=== PATIENT | male | born 1985 | race Caucasian/White ===

== ENCOUNTER 2016-04-11 09:20 | Inpatient (IN) | payer MEDICARE, MEDICAID ==
[~2016-04-11] VITALS: Ht 175.3 cm; Wt 111.1 kg
[2016-04-11] MEDS ORDERED: Ibuprofen 400 MG TAB PO PRN (13:30)
[2016-04-11] MEDS ORDERED: HALOPERIDOL 5 MG TAB PO PRN (13:30)
[2016-04-11] MEDS ORDERED: LORAZEPAM 2 MG TAB PO PRN (13:30)
[2016-04-11] MEDS ORDERED: ALU/MAG/SIM 30 ML UDC PO PRN (13:30)
[2016-04-11] MEDS ORDERED: LORAZEPAM 2 MG/ML VIAL IM PRN (13:30)
[2016-04-11] MEDS ORDERED: DIPHENHYDRAMINE 50 MG/ML VIAL IM PRN (13:30)
[2016-04-11] MEDS ORDERED: **NOTE TO NURSE XX SCH (13:30)
[2016-04-11] MEDS ORDERED: HALOPERIDOL 5 MG/ML VIAL IM PRN (13:30)
[2016-04-11] MEDS ORDERED: TRAZODONE 50 MG TAB PO PRN (13:30)
[2016-04-11] MEDS ORDERED: DIPHENHYDRAMINE 50 MG CAP PO PRN (13:30)
[2016-04-11] MEDS ORDERED: *PINK BRACELET XX ONE (14:25)
[2016-04-11 14:26] VITALS: BP_SYST 119; TEMP 98.5
[2016-04-11 14:44] VITALS: Ht 175.3 cm; Wt 111.1 kg
[2016-04-11] MEDS ORDERED: TRAMADOL 50 MG TAB PO PRN (15:00)
[2016-04-11] MEDS: DULoxetine 30 MG CAP PO SCH (17:00)
[2016-04-11] MEDS: NICOTINE 21 MG/24 HR TRANSDERM SCH (17:30)
[2016-04-11 19:00] VITALS: BP_SYST 105; RESP 18; TEMP 97.8
[2016-04-11] MEDS: *HOME MEDS KEPT IN PHARMACY XX SCH (20:00)
[2016-04-11] MEDS: BENZTROPINE 0.5 MG TAB PO SCH (20:48)
[2016-04-11] MEDS: PREGABALIN 75 MG CAP PO SCH (20:48)
[2016-04-12 08:46] VITALS: BP_SYST 125; RESP 18; TEMP 98.7
[2016-04-12] MEDS ORDERED: TRAZODONE 50 MG TAB PO PRN (09:15)
[2016-04-12] MEDS: PREGABALIN 75 MG CAP PO SCH ×2 (09:36→21:20)
[2016-04-12] MEDS: DULoxetine 30 MG CAP PO SCH (09:36)
[2016-04-12] MEDS: BENZTROPINE 0.5 MG TAB PO SCH (09:36)
[2016-04-12] MEDS: NICOTINE 21 MG/24 HR TRANSDERM SCH (09:50)
[2016-04-12] MEDS: *HOME MEDS KEPT IN PHARMACY XX SCH ×2 (10:00→21:26)
[2016-04-12] MEDS: BUPROPION XL 150 MG TAB PO SCH (11:30)
[2016-04-12 19:08] VITALS: BP_SYST 113; RESP 18; TEMP 97.8
[2016-04-12] MEDS: BENZTROPINE MES 1 MG TAB PO SCH (21:48)
[2016-04-13] MEDS: *HOME MEDS KEPT IN PHARMACY XX SCH ×2 (08:00→20:00)
[2016-04-13 08:39] VITALS: BP_SYST 102; RESP 18; TEMP 98
[2016-04-13] MEDS: NICOTINE 21 MG/24 HR TRANSDERM SCH (09:18)
[2016-04-13] MEDS: PREGABALIN 75 MG CAP PO SCH ×2 (09:18→21:57)
[2016-04-13] MEDS: DULoxetine 30 MG CAP PO SCH (09:18)
[2016-04-13] MEDS: BUPROPION XL 150 MG TAB PO SCH (09:18)
[2016-04-13] MEDS: BENZTROPINE MES 1 MG TAB PO SCH ×2 (09:18→21:57)
[2016-04-13] MEDS: CYCLOBENZAPRINE 10 MG TAB PO PRN ×2 (10:30→20:15)
[2016-04-13] MEDS: ASENAPINE 5 MG SL SCH ×2 (10:47→21:57)
[2016-04-13] MEDS: ACETAMINOPHEN 325 MG TAB PO PRN (15:50)
[2016-04-13 19:00] VITALS: BP_SYST 115; RESP 18; TEMP 98.3
[2016-04-13] MEDS ORDERED: CHLORPROMAZINE 25 MG TAB PO SCH (21:00)
[2016-04-14] MEDS: CYCLOBENZAPRINE 10 MG TAB PO PRN ×2 (04:34→15:05)
[2016-04-14 07:36] VITALS: BP_SYST 113; RESP 18; TEMP 97.6
[2016-04-14] MEDS: ASENAPINE 5 MG SL SCH ×2 (08:35→20:09)
[2016-04-14] MEDS: BUPROPION XL 150 MG TAB PO SCH (08:35)
[2016-04-14] MEDS: PREGABALIN 75 MG CAP PO SCH ×2 (08:36→20:07)
[2016-04-14] MEDS: DULoxetine 30 MG CAP PO SCH (08:36)
[2016-04-14] MEDS: *HOME MEDS KEPT IN PHARMACY XX SCH ×2 (08:38→19:39)
[2016-04-14] MEDS: BENZTROPINE MES 1 MG TAB PO SCH ×2 (08:38→20:07)
[2016-04-14] MEDS: NICOTINE 21 MG/24 HR TRANSDERM SCH (08:50)
[2016-04-14] MEDS: MAG HYDROX 30 ML UDC PO PRN (16:37)
[2016-04-14 19:12] VITALS: BP_SYST 109; RESP 18; TEMP 98.3
[2016-04-14] MEDS ORDERED: CHLORPROMAZINE 25 MG TAB PO SCH (21:00)
[2016-04-15] MEDS: *HOME MEDS KEPT IN PHARMACY XX SCH ×2 (07:13→20:00)
[2016-04-15] MEDS: ASENAPINE 5 MG SL SCH ×2 (08:03→20:17)
[2016-04-15] MEDS: PREGABALIN 75 MG CAP PO SCH ×2 (08:11→20:16)
[2016-04-15] MEDS: DULoxetine 30 MG CAP PO SCH (08:11)
[2016-04-15] MEDS: BENZTROPINE MES 1 MG TAB PO SCH ×2 (08:11→20:16)
[2016-04-15] MEDS: BUPROPION XL 150 MG TAB PO SCH (08:12)
[2016-04-15] MEDS: CYCLOBENZAPRINE 10 MG TAB PO PRN ×2 (08:13→18:41)
[2016-04-15 08:20] VITALS: BP_SYST 100; RESP 20; TEMP 98.4
[2016-04-15] MEDS: NICOTINE 21 MG/24 HR TRANSDERM SCH (08:35)
[2016-04-15] MEDS: ACETAMINOPHEN 325 MG TAB PO PRN (10:31)
[2016-04-15 19:00] VITALS: BP_SYST 112; RESP 16; TEMP 98.3
[2016-04-15] MEDS ORDERED: CHLORPROMAZINE 25 MG TAB PO SCH (21:00)
[2016-04-16 07:10] VITALS: BP_SYST 112; RESP 20; TEMP 97.6
[2016-04-16] MEDS: *HOME MEDS KEPT IN PHARMACY XX SCH ×2 (07:19→19:48)
[2016-04-16] MEDS: BENZTROPINE MES 1 MG TAB PO SCH ×2 (08:13→20:22)
[2016-04-16] MEDS: DULoxetine 30 MG CAP PO SCH (08:13)
[2016-04-16] MEDS: PREGABALIN 75 MG CAP PO SCH ×2 (08:13→20:22)
[2016-04-16] MEDS: BUPROPION XL 150 MG TAB PO SCH (08:13)
[2016-04-16] MEDS: NICOTINE 21 MG/24 HR TRANSDERM SCH (08:16)
[2016-04-16] MEDS ORDERED: MISSING DOSE XX ONE (09:00)
[2016-04-16] MEDS: ASENAPINE 5 MG SL SCH ×2 (09:21→20:23)
[2016-04-16] MEDS: CYCLOBENZAPRINE 10 MG TAB PO PRN ×2 (09:59→17:54)
[2016-04-16] MEDS: ACETAMINOPHEN 325 MG TAB PO PRN (11:22)
[2016-04-16] MEDS: MAG HYDROX 30 ML UDC PO PRN (16:02)
[2016-04-16] MEDS ORDERED: hydrOXYzine PAM 50 MG CAP PO PRN (17:20)
[2016-04-16 19:00] VITALS: BP_SYST 113; RESP 20; TEMP 98
[2016-04-16] MEDS ORDERED: CHLORPROMAZINE 25 MG TAB PO SCH (21:00)
[2016-04-17] MEDS: *HOME MEDS KEPT IN PHARMACY XX SCH (07:04)
[2016-04-17 07:16] VITALS: BP_SYST 104; RESP 18; TEMP 97.6
[2016-04-17] MEDS: BUPROPION XL 150 MG TAB PO SCH (08:14)
[2016-04-17] MEDS: DULoxetine 30 MG CAP PO SCH (08:14)
[2016-04-17] MEDS: BENZTROPINE MES 1 MG TAB PO SCH (08:14)
[2016-04-17] MEDS: PREGABALIN 75 MG CAP PO SCH (08:14)
[2016-04-17] MEDS: CYCLOBENZAPRINE 10 MG TAB PO PRN (08:26)
[2016-04-17] MEDS: NICOTINE 21 MG/24 HR TRANSDERM SCH (09:10)
[2016-04-17] MEDS: ASENAPINE 5 MG SL SCH (09:11)
[2016-04-17 09:26] VITALS: BP_SYST 104; RESP 18; TEMP 97.6
== END 2016-04-17 14:18 | disposition home or self-care (01) | DRG 93 ==
LOC: ENRESERVTM → ENRESERVDT → ER 09:20 → EMR 13:24 → PSY 13:50
PROVIDERS: ADMIT Psychiatry & Neurology Psychiatry; ATTEND Psychiatry & Neurology Psychiatry
DX: G89.29 Other chronic pain (principal); F17.200 Nicotine dependence, unspecified, uncomplicated
CPT/HCPCS: 36415; 80053; 81003; 83036; 84439; 84443; 85025; 85610